=== PATIENT | female | born 1940 | race Caucasian/White ===

== ENCOUNTER 2025-02-21 02:17 | Emergency (ER) | payer MEDICARE, OTHER ==
[~2025-02-21] VITALS: Ht 157.5 cm; Wt 79.4 kg
[2025-02-21 02:23] VITALS: BP 152/50
[2025-02-21] MEDS ORDERED: ONDANSETRON ODT 4 MG TAB.RAPDIS ONE (02:53)
[2025-02-21] MEDS ORDERED: HYDROMORPHONE 1 MG/1 ML DISP.SYRIN ONE (02:54)
[2025-02-21] MEDS: ONDANSETRON ODT 4 MG TAB.RAPDIS SL ONE (02:56)
[2025-02-21] MEDS: HYDROMORPHONE 1 MG/1 ML DISP.SYRIN IM ONE (02:57)
[2025-02-21] MEDS ORDERED: HYDR-4209 PO (03:03)
[2025-02-21] MEDS ORDERED: ONDA4TAB11 PO (03:03)
[2025-02-21 03:35] VITALS: BP 148/59; TEMP 98; O2SAT 98
== END 2025-02-21 03:36 | disposition home or self-care (01) ==
LOC: ER 02:44
DX: M54.30 Sciatica, unspecified side (principal)
CPT/HCPCS: 99283; 72100; 96372; J1171; A4606; A4663; Q0162